=== PATIENT | female | born 1965 | race Caucasian/White ===

== ENCOUNTER → 2016-08-31 | Outpatient (CLI) | payer BC ==
[~2016-08-31] MED LIST: ASPI325T45 PO; DICY10CA12 PO; DOCU-94 PO; HYDRAER4 PR; LISI-725 PO; POLY335019 PO; VERA1CAP PO
--- NOTE | 2016-08-31 07:49 | DIAGNOSTIC IMAGING REPORT ---
Right thigh ultrasonography CLINICAL HISTORY: Palpable lump COMPARISON STUDY: No previous studies for comparison. FINDINGS: Within the anterior proximal to mid thigh, multiple lesions were visualized within the subcutaneous fat. Proximally there is an 18 x 7 x 20 mm isoechoic nodule. Laterally there is 2 echogenic foci measuring 4 x 4 x 6 mm and 4 x 3 x 4 mm. Within the mid thigh laterally there is an echogenic focus measuring 10 x 7 x 16 mm. Within the mid thigh medially, there is a 6 x 3 x 5 mm echogenic focus. While nonspecific, these lesions likely reflect lipomas or areas of fat necrosis. Clinical follow-up is recommended. IMPRESSION: Multiple lesions are visualized in the subcutaneous fat, corresponding to the palpable abnormalities. While nonspecific, these lesions likely reflect lipomas, or areas of fat necrosis. Clinical follow-up is recommended. Electronically signed by: Finesse Cornell M.D. 08/31/2016 7:47 AM Dictated Date/Time: 08/31/2016 7:43 AM
--- NOTE | 2016-08-31 07:57 | DIAGNOSTIC IMAGING REPORT ---
RIGHT HIP UNILATERAL 2 VIEWS CLINICAL HISTORY: Right hip pain. Localized swelling or lump. COMPARISON: Right lower extremity ultrasound performed earlier today. FINDINGS: Alignment of the right hip is anatomic. There is no fracture or suspicious lesion. Joint space is preserved. There is minimal osteophytosis. There may be surgical clips within the medial right thigh. There is mild arthritis of the right sacroiliac joint. IMPRESSION: 1. No acute fracture. 2. Minimal degenerative changes of the right hip. Moderate arthritis of the right sacroiliac joint. Electronically signed by: Vinny Tavarez M.D. 08/31/2016 7:55 AM Dictated Date/Time: 08/31/2016 7:54 AM
--- NOTE | 2016-08-31 07:59 | DIAGNOSTIC IMAGING REPORT ---
RIGHT FEMUR 2 VIEWS ROUTINE CLINICAL HISTORY: Right hip pain. Palpable lumps within the right lower extremity. COMPARISON: Right lower extremity ultrasound performed earlier today. FINDINGS: Alignment of the right hip and right knee is anatomic. There is no fracture or suspicious lesion within the right femur. . There is moderate arthritis of the right sacroiliac joint. The small lesions within the subcutaneous tissues of the right lower extremity on ultrasound performed earlier today are not evident on this exam, likely due to technique. A 6 mm calcific density within the proximal lateral right thigh is benign. IMPRESSION: No osseous abnormality of the right femur. Electronically signed by: Vinny Tavarez M.D. 08/31/2016 7:57 AM Dictated Date/Time: 08/31/2016 7:55 AMAM
== END | disposition home or self-care (01) ==
LOC: C.ULTR 06:50
PROVIDERS: ATTEND Family Medicine
DX: R22.41 Localized swelling, mass and lump, right lower limb (principal); M08.451 Pauciarticular juvenile rheumatoid arthritis, right hip

== ENCOUNTER → 2016-09-07 | Outpatient (CLI) | payer BC ==
[~2016-09-07] MED LIST changes: +GADAVIST IV PRN
--- NOTE | 2016-09-07 18:53 | DIAGNOSTIC IMAGING REPORT ---
MRI RIGHT THIGH COMBO CLINICAL HISTORY: Soft tissue lesions. COMPARISON STUDY: Radiographs of the right hip dated 08/31/2016. Ultrasound of the right thigh dated 08/31/2016. TECHNIQUE: MRI of the right thigh is performed utilizing various T1 and T2-weighted sequences in the axial, sagittal, and coronal planes. Contrast-enhanced images are acquired following the IV administration of 8 cc of Gadavist. The examination is degraded by large body habitus. FINDINGS: No soft tissue lesion is identified in the right thigh. There is no enhancing mass is seen and there is no edema present. [place] appearing subcutaneous fat is noted at the indicated sites of interest. Underlying lipoma would be impossible to exclude. The regional musculature is normal in bulk and signal intensity. The visualized right femur and bony pelvis appear intact. The femoral vessels are patent. IMPRESSION: 1. No enhancing mass lesions or edema are identified in the right thigh at the indicated site of interest. 2. Subcutaneous fat is noted at the indicated sites of interest. No obvious lipoma is seen but this would be difficult to exclude. Clinical follow-up will be required. Dictated: 09/07/2016 6:25 PM Transcribed: 09/07/2016 6:52 PM [place] Electronically signed by: Sam Chavez M.D. 09/08/2016 11:24 AM Dictated Date/Time: 09/07/2016 6:25 PM
== END | disposition home or self-care (01) ==
LOC: C.MRI 16:20
PROVIDERS: ATTEND Family Medicine
DX: R22.41 Localized swelling, mass and lump, right lower limb (principal); M25.551 Pain in right hip; C49.9 Malignant neoplasm of connective and soft tissue, unspecified

== ENCOUNTER → 2016-12-29 | Outpatient (CLI) | payer BC ==
[~2016-12-29] MED LIST changes: -GADAVIST IV PRN; +HYDR1AER23 PR; -HYDRAER4 PR
--- NOTE | 2016-12-29 16:39 | DIAGNOSTIC IMAGING REPORT ---
KUB CLINICAL HISTORY: Generalized abdominal pain. Constipation. FINDINGS: 2 AP supine abdominal radiographs are obtained. No prior studies are available for comparison at the time of dictation. There is a nonobstructed abdominal bowel gas pattern. No evidence of intraperitoneal free air is seen on these supine views. There is moderate to severe colonic fecal retention. No abnormal abdominal calcifications are identified. The bony structures appear intact. IMPRESSION: Moderate to severe constipation. Electronically signed by: Sam Chavez M.D. 12/29/2016 4:37 PM Dictated Date/Time: 12/29/2016 4:37 PM
== END | disposition home or self-care (01) ==
LOC: C.RAD1850 16:22
PROVIDERS: ATTEND Physician Assistant
DX: R10.84 Generalized abdominal pain (principal); R19.8 Other specified symptoms and signs involving the digestive system and abdomen; R14.0 Abdominal distension (gaseous); K59.00 Constipation, unspecified

== ENCOUNTER 2016-12-30 08:35 | Emergency (ER) | payer BC ==
[~2016-12-30] VITALS: Ht 170.2 cm; Wt 82.9 kg
[~2016-12-30 08:35] MED LIST changes: -DICY10CA12 PO; -DOCU-94 PO; -HYDR1AER23 PR; -POLY335019 PO
[2016-12-30 08:37] VITALS: TEMP 36.6; Ht 170.2 cm; Wt 82.9 kg
[2016-12-30] MEDS ORDERED: DICY10CA12 PO (08:47)
--- NOTE | 2016-12-30 09:00 | EMERGENCY ROOM VISIT NOTE ---
History Report prepared by Faiza: Jan Mccoy Under the Supervision of: Dr. Ady Camacho M.D. First contact with patient: 08:48 Chief Complaint: CONSTIPATION Stated Complaint: SEVERE CONSTIPATION Nursing Triage Summary: I had xray and it showed I am constipated. I have been taking miralax for a week without relief. History of Present Illness The patient is a 51 year old female who presents to the Emergency Room with complaints of persistent constipation that started 2 weeks ago. She says that she had an episode of gastroenteritis 2 weeks ago, and was seen at the [place] [facility] for that. The patient had diarrhea, vomiting, and cold shakes there. She also had a fever there, but has not had a fever since then. The patient was given an antibiotic as well as a nausea medication. Ever since that episode, she has not had a bowel movement. The patient has been taking a cap-full of Miralax daily for a week with no relief. She notes that she has been experiencing abdominal cramping and feelings of abdominal bloating from the constipation. The patient was seen yesterday and had an x-ray which revealed severe constipation. She was given medication for the cramping. The patient could not keep a suppository down last night, and she tried a saline enema, but she says that "water came in, and water came out". The patient has an appointment with Dr. Barron of [facility] in 11 days. She notes that she has not eaten over the past 2 days. The patient denies any recent fevers, back pain, urinary symptoms, or leg pain. Source of History: patient, spouse/significant other Onset: 2 weeks ago Position: other (global - constipation) Symptom Intensity: no bowel movements for 2 weeks Timing: other (persistent) Associated Symptoms: + abdominal pain (cramping and feelings of bloating), + diarrhea (in hospital 2 weeks ago), + vomiting (in hospital 2 weeks ago), No back pain, No fevers (recent), No urinary symptoms Note: Associated symptoms: Had cold shakes 2 weeks ago in [place] ER. Has not eaten over past 2 days. Denies leg pain. Review of Systems All systems have been listed, reviewed, and are negative other than those previously mentioned. Please see Additional Medical History Sheet. Past Medical & Surgical Medical Problems: (1) Hypertension Family History FH: lung disease FHx: gallbladder disease Hypertension Social History Smoking Status: Never Smoker Alcohol Use: occasionally Marital Status: Housing Status: lives with significant other Occupation Status: employed Current/Historical Medications Scheduled Aspirin (Aspirin), 325 MG PO DAILY Hydrocortisone/Pramoxine (Proctofoam Hc), 1 APPL [place] BID Lisinopril (Zestril), 20 MG PO DAILY Verapamil Hcl (Verelan), 240 MG PO DAILY Scheduled PRN Dicyclomine Hcl (Dicyclomine Hcl), 10 CAP PO TID PRN for ABDOMINAL CRAMPING Allergies Coded Allergies: Adhesives (Unverified Allergy, Intermediate, BLISTER, 06/26/16) Latex (Unverified Allergy, Intermediate, RASH, 06/26/16) Oxycodone (Unverified Adverse Reaction, Intermediate, MIGRAINE, 09/07/16) Physical Exam Vital Signs Date Time Temp Pulse Resp B/P Pulse Ox O2 Delivery O2 Flow Rate FiO2 12/30/16 10:50 72 18 118/91 98 Room Air 12/30/16 08:37 36.6 69 18 141/86 99 Room Air Physical Exam GENERAL: Patient awake, alert, oriented x 3. Patient follows commands. Patient does not appear toxic. Patient is adequately hydrated and well- nourished. SKIN: No erythema, pallor, cyanosis or rash HEENT: Normal head, pupils equal, reactive to light and accommodation. LUNGS: Clear to auscultation. No wheezes, no rales, no rhonchi. HEART: No murmurs. No gallops. No rubs ABDOMEN: Vague generalized tenderness. No masses, no rebound, no hepatomegaly or splenomegaly. Does not have acute abdomen. RECTAL: Tenderness in anus but no stool or mass was palpated. EXTREMITIES: No signs of trauma. NEUROLOGIC: Cranial nerves II-XII within normal limits. No gross motor sensory function deficits. Medical Decision & Procedures Medications Administered Medications (Trade) Dose Ordered Sig/[place] Route Start Time Stop Time Status Last Admin Dose Admin Magnesium Citrate (Citrate Of Magnesia Soln) 150 ml ONE ONCE PO 12/30/16 10:45 12/30/16 10:46 DC 12/30/16 10:49 150 ML ED Course 0850: Past medical records reviewed. The patient was evaluated in room B5. A complete history and physical examination was performed. 1034: I reevaluated the patient and she had minimal results from the soap suds enema. I discussed other treatment options with her, and we are going to try Magnesium Citrate. The patient verbally expressed understanding and agreement of the treatment plan. The patient will be discharged. 1045: Ordered Citrate of Magnesia Soln 150 ml PO. Medical Decision Nurses notes reviewed. Medical history sheet reviewed. Differential diagnosis includes but is not limited to: bowel obstruction, constipation, Crohn's Disease , ulcerative colitis, neoplastic disease. The patient is here with constipation. She also has a small amount of loose stool. The patient does not have an acute abdomen. She was given soapsuds enema with minimal results. I reviewed the x-ray from yesterday which is consistent with constipation. Patient does not appear to have a bowel obstruction. Her clinical exam is also not consistent with a bowel obstruction or an acute abdomen. The patient was given mag citrate to take at home. She is to take one half of the bottle initially and then the other half later this afternoon if she has not yet had a bowel movement. The patient was also given a prescription for Proctofoam/Anusol to take for the soreness in her anal area. Impression Primary Impression: Constipation Scribe Attestation The scribe's documentation has been prepared under my direction and personally reviewed by me in its entirety. I confirm that the note above accurately reflects all work, treatment, procedures, and medical decision making performed by me. Departure Information Dispostion Home / Self-Care Prescriptions Hydrocortisone/Pramoxine (Proctofoam Hc) Aer 1 APPL [place] BID for 5 Days, #10 GM 1 Refill Prov: Ady Camacho M.D. 12/30/16 Referrals Margret Moore PA-C (PCP) Forms HOME CARE DOCUMENTATION FORM, IMPORTANT VISIT INFORMATION Patient Instructions Constipation, My [facility] Additional Instructions Take the rest of the Mag Citrate by 5 pm if you have not yet had a BM. Start using Proctofoam today. Follow-up here or with your family physician in 2 days if symptoms persist.
[2016-12-30] MEDS ORDERED: HYDR1AER23 PR (09:31)
[2016-12-30] MEDS ORDERED: DOCU-94 PO (09:31)
[2016-12-30] MEDS ORDERED: POLY335019 PO (09:31)
[2016-12-30] MEDS ORDERED: MAGNESIUM CITRATE 296 ML/BTL PO ONE (10:45)
[2016-12-30 10:50] VITALS: BP 118/91; PULSE 72; O2SAT 98
--- NOTE | 2016-12-30 11:09 | Pharmacy Progress Note ---
ED Pharmacist Progress Note Date of Service: December 30, 2016. Patient's pharmacy called stating the Proctofoam HC would not be available today , and would need to be ordered for this patient. Dr Camacho asked the Rx be changed to Anusol HC 2.5% Cr apply to affected area 2x daily x 5 days, 30gm tube. I contacted pt's pharmacy [facility] ([phone]), gave the new Rx for Anusol HC to pharmacist over phone and asked the Rx fror Proctofoam HC be cancelled.
== END 2016-12-30 11:29 | disposition home or self-care (01) ==
LOC: C.EDB 08:36
DX: K59.00 Constipation, unspecified (principal); I10 Essential (primary) hypertension; Z82.49 Family history of ischemic heart disease and other diseases of the circulatory system; Z79.82 Long term (current) use of aspirin

== ENCOUNTER → 2017-02-01 | Outpatient (CLI) | payer BC ==
[~2017-02-01] MED LIST changes: +DICY10CA12 PO; +HYDR1AER23 PR
--- NOTE | 2017-02-01 14:48 | MAMMOGRAPHY REPORT ---
BILATERAL DIGITAL SCREENING MAMMOGRAM TOMOSYNTHESIS WITH CAD: 02/01/2017 CLINICAL HISTORY: Routine screening. Patient has no complaints. TECHNIQUE: Breast tomosynthesis in addition to standard 2D mammography was performed. Current study was also evaluated with a Computer Aided Detection (CAD) system. COMPARISON: Comparison is made to exams dated: 02/09/2016 mammogram, 01/29/2016 mammogram, 05/27/2015 ultrasound, 01/23/2015 mammogram, 01/17/2014 mammogram, and 01/11/2013 mammogram - [facility]. BREAST COMPOSITION: There are scattered areas of fibroglandular density in both breasts. FINDINGS: No suspicious masses, calcifications, or areas of architectural distortion are noted in ei ther breast. There has been no significant interval change compared to prior exams. A biopsy marker clip is noted in the left upper outer quadrant. Bilateral benign-appearing calcifications are not si gnificantly changed. 2 small circumscribed benign-appearing masses in the right breast are not signi ficantly changed. IMPRESSION: ACR BI-RADS CATEGORY 2: BENIGN There is no mammographic evidence of malignancy. A 1 year screening mammogram is recommended. The pa tient will receive written notification of the results. Approximately 10% of breast cancers are not detected with mammography. A negative mammographic report should not delay biopsy if a clinically suggestive mass is present. Gris Molina M.D. ah/:02/01/2017 07:49:12 Mental Health Specialist: Garima NAVARRO([place])(M), [facility] letter sent: Normal 1/2 BI-RADS Code: ACR BI-RADS Category 2: Benign
== END | disposition home or self-care (01) ==
LOC: C.MAMM 07:08
PROVIDERS: ATTEND Physician Assistant
DX: Z12.31 Encounter for screening mammogram for malignant neoplasm of breast (principal)

== ENCOUNTER → 2017-09-07 | Outpatient (CLI) | payer OTHER ==
--- NOTE | 2017-09-07 13:47 | DIAGNOSTIC IMAGING REPORT ---
HEAD WITHOUT CONTRAST (CT) CT DOSE: 537.48 mGy.cm HISTORY: Trauma. Headache. CALL RESULTS PT NOT WAITING TECHNIQUE: Multiaxial CT images of the head were performed without the use of intravenous contrast. A dose lowering technique was utilized adhering to the principles of ALARA. Comparison: None. Findings: The paranasal sinuses and mastoid air cells are clear. The calvarium and skull base are intact. The ventricles and sulci are within normal limits. There is no mass, hematoma, midline shift, or acute infarct. Impression: No acute intracranial abnormality. The above report was generated using voice recognition software. It may contain grammatical, syntax or spelling errors. Electronically signed by: Louis Foreman M.D. 09/07/2017 1:46 PM Dictated Date/Time: 09/07/2017 1:45 PM
== END | disposition home or self-care (01) ==
LOC: C.CTS 13:32
PROVIDERS: ATTEND Family Medicine
DX: S06.0X9A Concussion with loss of consciousness of unspecified duration, initial encounter (principal); X58.XXXA Exposure to other specified factors, initial encounter

== ENCOUNTER → 2017-10-13 | Outpatient (CLI) | payer OTHER ==
--- NOTE | 2017-10-13 13:36 | MAMMOGRAPHY REPORT ---
UNILATERAL LEFT DIGITAL DIAGNOSTIC MAMMOGRAM TOMOSYNTHESIS WITH CAD: 10/13/2017 CLINICAL HISTORY: The patient reports nonfocal, predominantly diffuse, left breast pain since mid Aug. She denies any palpable lumps, nipple discharge, skin changes, or other complaints. TECHNIQUE: Breast tomosynthesis in addition to standard 2D mammography was performed. Current study was also evaluated with a Computer Aided Detection (CAD) system. Left CC and MLO 2-D and tomosynthes is images were obtained. COMPARISON: Comparison is made to exams dated: 02/01/2017 mammogram, 02/12/2016 mammogram, 02/09/2016 ma mmogram, 01/29/2016 mammogram, and 05/27/2015 mammogram - [facility]. BREAST COMPOSITION: There are scattered areas of fibroglandular density in the left breast. FINDINGS: There are no suspicious masses, calcifications, or areas of architectural distortion noted within the left breast mammographically. There has been no significant interval change compared to prior exams. A biopsy marker clip is again noted within the left upper outer quadrant from prior karissa ign biopsy. As the pain is predominantly diffuse and non-focal, ultrasound was not performed. IMPRESSION: ACR BI-RADS CATEGORY 2: BENIGN No suspicious mammographic abnormality to explain left breast pain. There is no mammographic evidenc e of malignancy in the left breast. Recommend clinical follow-up for left breast pain, and recommend routine bilateral screening mammograms which are due January 2018. The patient has been verbally notified of the results. Approximately 10% of breast cancers are not detected with mammography. A negative mammographic report should not delay biopsy if a clinically suggestive mass is present. Gris Molina M.D. ah/:10/13/2017 09:08:12 Pelt Grader: Pamela AGUILAR)(Shonda), [facility] letter sent: Normal /2 BI-RADS Code: ACR BI-RADS Category 2: Benign
== END | disposition home or self-care (01) ==
LOC: C.MAMM 08:23
PROVIDERS: ATTEND Physician Assistant
DX: R92.8 Other abnormal and inconclusive findings on diagnostic imaging of breast (principal); N64.4 Mastodynia